=== PATIENT | female | born 1975 | race African-American/Black ===

== ENCOUNTER → 2016-12-24 | Outpatient (CLI) | payer MEDICARE, OTHER ==
[~2016-12-24] MED LIST: ADVIL200 M2 PO; ALEVE220 M1 PO; BENADRYL25 MG PO; CALCIUM + D 6001 TA1 PO; CARBIDOPA25 MG PO; COLACE PO; DEPO-ESTRADIO5 MG/ML; DEPO-PROVE150 MG/1 M IM; DOCU SOFT100 M1 PO; ELIMITE60 GM TOP; KEFLEX500 MG PO; KEPPRA500 M2 PO; LEVAQUIN PO; LEXAPRO20 MG PO; MEDROL PO; MILK OF MAGNESIA PO; NEXIUM PO; TOPAMAX PO; VIMPAT50 MG PO
--- NOTE | ~2016-12-24 | MY29 ---
[facility] A Service of [facility] RADIOLOGY TEXT RESULTS PATIENT: ALVARO MENCHACA LOCATION: [facility] : 75 UNIT #: [id number] AGE: [address]: Marcia Luke MD SEX: F ORDER DR: [id number] [facility] [address] [place], [place] [address] [id number] O MR#: [id number] Acc #: [id number] NAME: ALVARO MENCHACA : 1975 SEX: F STUDY DATE/TIME: 12/24/2016 11:02 UNIT: [facility] ROOM: STUDY DESCRIPTION: MY [facility] SCREENING W/ CAD BILAT Attending Physician: Marcia Luke M.D. Referring Physician: Marcia Luke M.D. Ordering Physician: Marcia Luke M.D. Primary Care Physician: Marcia Luke M.D. MEDICAL IMAGING REPORT This report is preliminary unless electronic signature is present EXAM Bilateral digital screening mammogram with CAD, 12/24/2016 HISTORY 41-year-old female with history of breast reduction surgery. Family history of breast cancer in an aunt and cousin. No personal history of breast cancer or current complaints. COMPARISON Bilateral screening mammogram, 12/15/2015 FINDINGS Limited positioning of the breasts, as the patient has cerebral palsy and the examination had to be performed with the patient in her wheelchair. CC and MLO views were obtained of each breast utilizing digital technique and reviewed with an FDA-approved CAD device. Breast tissue is predominant fatty replaced. No suspicious nodule is identified. Benign appearing groupings of calcifications are present bilaterally. No architectural distortion or clustered microcalcification is identified. IMPRESSION Benign findings. Routine bilateral screening mammogram is recommended in one year. Patients over the age of 40 are entered into a reminder system with target due date for the next mammogram. A result letter will also be sent to the patient. BIRADS: 2 Benign Finding [facility] A Service [facility] RADIOLOGY TEXT RESULTS PATIENT: ALVARO MENCHACA LOCATION: [facility] : 75 UNIT #: [id number] AGE: [address]: Marcia Luke MD SEX: F ORDER DR: Dictated by... Siri Healy M.D. THIS IS AN ELECTRONICALLY VERIFIED REPORT Siri Healy M.D. at 12/30/2016 8:36 AM RIZWAN/trino TD: 12/24/2016 16:13 JOB #: [id number] MEDICAL IMAGING REPORT Page 1 of 1 COPY
== END | disposition home or self-care (01) ==
LOC: CWCC 12-20 10:45
DX: Z12.31 Encounter for screening mammogram for malignant neoplasm of breast (principal); Z80.3 Family history of malignant neoplasm of breast
CPT/HCPCS: G0202